=== PATIENT | female | born 2000 | race Caucasian/White ===

== ENCOUNTER 2022-12-12 19:45 | Emergency (ER) | payer OTHER ==
[2022-12-12] MEDS ORDERED: NA CHLORIDE 0.9% 1,000 ML ONE (20:36)
[2022-12-12] MEDS ORDERED: ONDANSETRON 4 MG/2 ML VIAL ONE (20:36)
[2022-12-12 20:43] LABS: Absolute Lymphocytes (CBC) 2.7 K/uL (0.7-4.9); Hematocrit 40.5 % (36.0-45.0); Lymphocytes % 33.2 % (15.3-44.8); MCV 88.4 fL (80-100); MPV 8.3 fL (7.6-11.3); RBC Red Blood Cell Count 4.58 M/uL (3.86-4.86)
[2022-12-12 20:45] LABS: Specific Gravity > 1.030 (1.005-1.030)
[2022-12-12 20:47] LABS: Specific Gravity > 1.030 (1.005-1.030); Urine Bacteria 20-50 /HPF (<20); Urine Bilirubin NEGATIVE (Negative); Urine Blood Trace (Negative); Urine Clarity Extremely Turbid (Clear); Urine Color Yellow (Yellow); Urine Crystals Unidentified Few /HPF (None Seen); Urine Glucose NEGATIVE (Negative); Urine Mucus Slight /HPF (None Seen); Urine Protein TRACE (Negative); Urine Urobilinogen Normal (Normal); Urine WBC Clump Occasional /HPF (None Seen); Urine pH 5.5 (5.0-7.0)
[2022-12-12 21:01] LABS: Albumin 3.7 g/dL (3.4-5.0); Bilirubin Total 0.5 mg/dL (0.2-1.0); Potassium 3.4 mEq/L (3.5-5.1); Protein, Total 7.8 g/dL (6.4-8.2)
--- NOTE | 2022-12-12 21:37 | ER ---
Nurse's Notes [facility] Name: Marizol Parra Age: 22 yrs Sex: Female : 2000 Arrival Date: 12/12/2022 Time: 19:45 Bed 18 Private MD: Diagnosis: Rash and other nonspecific skin eruption;Nausea;Hypokalemia;UTI/ Urinary tract infection, site not specified Presentation: 12/12 19:53 Chief complaint: Patient states: that she is feeling weak onset Sunday. Pt states that cm10 she has been vomiting and that her right eye is swollen, pt states that her vision is blurred in the right eye. Pt's mom states, "I think that she may have had a small stroke 2 days ago." Pt A\\T\\Ox4, respirations even and unlabored. Coronavirus screen: Vaccine status: Patient reports receiving the 2nd dose of the covid vaccine. Client denies travel out of the [place] in the last 14 days. At this time, the client does not indicate any symptoms associated with coronavirus-19. Ebola Screen: Patient denies travel to an Ebola-affected area in the 21 days before illness onset. No symptoms or risks identified at this time. Initial Sepsis Screen: Does the patient meet any 2 criteria? No. Patient's initial sepsis screen is negative. Does the patient have a suspected source of infection? No. Patient's initial sepsis screen is negative. Risk Assessment: Do you want to hurt yourself or someone else? Patient reports no desire to harm self or others. Onset of symptoms was December 10, 2022. 19:53 Method Of Arrival: Ambulatory cm10 19:53 Acuity: RAMON 3 cm10 Triage Assessment: 19:58 General: Appears in no apparent distress. uncomfortable, Behavior is calm, cooperative. cm10 Pain: Complains of pain in head. 19:59 EENT: Reports blurred vision in right eye. Neuro: No deficits noted. Level of cm10 Consciousness is awake, alert, Oriented to person, place, time, situation. Respiratory: No deficits noted. Airway is patent Respiratory effort is even, unlabored, Respiratory pattern is regular, symmetrical. Historical: - Allergies: 19:57 No Known Allergies; cm10 - Home Meds: 19:57 fluoxetine 20 mg Oral capsule [Active]; cm10 - PMHx: 19:57 Anemia; Depressive disorder; cm10 - PSHx: 19:57 None; cm10 - Immunization history:: Adult Immunizations unknown. - Social history:: Smoking status: Patient denies any tobacco usage or history of. Screenin:56 [facility] ED Fall Risk Assessment (Adult) History of falling in the last 3 months, vc1 including since admission No falls in past 3 months (0 pts) Confusion or Disorientation No (0 pts) Intoxicated or Sedated No (0 pts) Impaired Gait No (0 pts) Mobility Assist Device Used No (0 pt) Altered Elimination No (0 pt) Score/Fall Risk Level 0 - 2 = Low Risk Oriented to surroundings, Maintained a safe environment, Educated pt \\T\\ family on fall prevention, incl call for assistance when getting out of bed. Abuse screen: Denies threats or abuse. Nutritional screening: No deficits noted. Tuberculosis screening: No symptoms or risk factors identified. Assessment: 22:03 Reassessment: No changes from previously documented assessment. Patient and/or family vc1 updated on plan of care and expected duration. Pain level reassessed. Patient is alert, oriented x 3, equal unlabored respirations, skin warm/dry/pink. Vital Signs: 19:53 BP 138 / 80; Pulse 104; Resp 16; Temp 98.6; Pulse Ox 100% on R/A; Weight 71.67 kg; cm10 Height 5 ft. 5 in. ; Pain 6/10; 20:54 BP 124 / 66 Supine; Pulse 84; vc1 20:54 BP 125 / 99 Sitting; Pulse 99; vc1 20:55 BP 131 / 69; Pulse 84; vc1 22:03 BP 110 / 91; Pulse 81; Resp 16; Pulse Ox 100% ; vc1 19:53 Body Mass Index 26.29 (71.67 kg, 165.1 cm) cm10 19:53 Pain Scale: Adult cm10 20:55 Pt felt a little dizzy standing up vc1 ED Course: 19:50 Patient arrived in ED. ja2 19:57 Triage completed. cm10 19:59 Arm band placed on Patient placed in waiting room, on a stretcher. cm10 20:02 Gómez Hendricks MD is Attending Physician. [facility] 20:22 Inserted saline lock: 20 gauge in right antecubital area, using aseptic technique. vc1 Blood collected. 20:25 Calcote, Mile, MALATHI is Primary Nurse. vc1 21:36 Cj Coronado DO is Referral Physician. [facility] 22:29 Bed in low position. Call light in reach. Side rails up X 1. as6 22:29 No provider procedures requiring assistance completed. IV discontinued, intact, as6 bleeding controlled, No redness/swelling at site. Pressure dressing applied. 22:43 Primary Nurse role handed off by Mile Hammond RN as6 Administered Medications: 20:31 Drug: NS 0.9% IV 1000 ml Route: IV; Rate: 1 bolus; Site: right antecubital; vc1 22:29 Follow up: Response: No adverse reaction; IV Status: Completed infusion; IV Intake: as6 1000ml 20:31 Drug: Ondansetron IVP 4 mg Route: IVP; Site: right antecubital; vc1 22:29 Follow up: Response: No adverse reaction as6 21:55 Drug: Rocephin IV 1 grams Route: IV; Rate: per protocol; Site: right antecubital; vc1 22:29 Follow up: Response: No adverse reaction; IV Status: Completed infusion; IV Intake: [id number] 21:55 Drug: Potassium PO Effervescent Tablet 25 mEq Route: PO; vc1 22:29 Follow up: Response: No adverse reaction as6 Medication: 22:29 VIS not applicable for this client. as6 Intake: 22:29 IV: 50ml; Total: 50ml. as6 22:29 IV: 1000ml; Total: 1050ml. as6 Outcome: 21:36 Discharge ordered by . [facility] 22:29 Discharged to home ambulatory, with family. as6 22:29 Condition: stable 22:29 Discharge instructions given to patient, Instructed on discharge instructions, follow up and referral plans. medication usage, Demonstrated understanding of instructions, follow-up care, medications, Prescriptions given X 2. 22:30 Patient left the ED. as6 22:44 Patient left the ED. vc1 Signatures: Gómez Hendricks MD MD cha Alexander, Jessica ja2 Slawson, Ashby, RN RN as6 Mile Hammond RN RN vc1 Adrienne Jules RN RN cm10 Corrections: (The following items were deleted from the chart) 20:56 20:55 BP 131 / 69; Pulse 84bpm; vc1 vc1
--- NOTE | 2022-12-12 21:37 | EDPHYS ---
Physician Documentation [facility] Name: Marizol Parra Age: 22 yrs Sex: Female : 2000 Arrival Date: 12/12/2022 Time: 19:45 Bed 18 Private MD: ED Physician Gómez Hendricks HPI: 12/12 20:17 This 22 yrs old Female presents to ER via Ambulatory with complaints of Eye murphy Swelling, Weakness, Bumps on Hand. 20:17 The patient is experiencing right brow swelling. Onset: The symptoms/episode murphy began/occurred 1 day(s) ago. Duration: the symptoms are continuous. Aggravated by nothing. Alleviated by nothing. Associated signs and symptoms: Pertinent positives: None. Pertinent negatives: None. Patient does not utilize any form of vision correction. Severity of symptoms: At their worst the symptoms were mild in the emergency department the symptoms are unchanged. The patient has not experienced similar symptoms in the past. Historical: - Allergies: 19:57 No Known Allergies; cm10 - Home Meds: 19:57 fluoxetine 20 mg Oral capsule [Active]; cm10 - PMHx: 19:57 Anemia; Depressive disorder; cm10 - PSHx: 19:57 None; cm10 - Immunization history:: Adult Immunizations unknown. - Social history:: Smoking status: Patient denies any tobacco usage or history of. ROS: 20:18 Constitutional: Negative for fever, chills, and weight loss, Eyes: Negative for injury, murphy pain, redness, and discharge, ENT: Negative for injury, pain, and discharge, Neck: Negative for injury, pain, and swelling, Cardiovascular: Negative for chest pain, palpitations, and edema, Respiratory: Negative for shortness of breath, cough, wheezing, and pleuritic chest pain, Abdomen/GI: Negative for abdominal pain, nausea, vomiting, diarrhea, and constipation, Back: Negative for injury and pain, : Negative for injury, bleeding, discharge, and swelling, MS/Extremity: Negative for injury and deformity, Neuro: Negative for headache, weakness, numbness, tingling, and seizure, Psych: Negative for depression, anxiety, suicide ideation, homicidal ideation, and hallucinations, Allergy/Immunology: Negative for hives, rash, and allergies, Endocrine: Negative for neck swelling, polydipsia, polyuria, polyphagia, and marked weight changes. 20:18 Skin: Positive for rash. Exam: 20:18 Constitutional: This is a well developed, well nourished patient who is awake, alert, murphy and in no acute distress. Head/Face: Normocephalic, atraumatic. Eyes: Pupils equal round and reactive to light, extra-ocular motions intact. Lids and lashes normal. Conjunctiva and sclera are non-icteric and not injected. Cornea within normal limits. Periorbital areas with no swelling, redness, or edema. ENT: Nares patent. No nasal discharge, no septal abnormalities noted. Tympanic membranes are normal and external auditory canals are clear. Oropharynx with no redness, swelling, or masses, exudates, or evidence of obstruction, uvula midline. Mucous membranes moist. Neck: Trachea midline, no thyromegaly or masses palpated, and no cervical lymphadenopathy. Supple, full range of motion without nuchal rigidity, or vertebral point tenderness. No Meningismus. Chest/axilla: Normal chest wall appearance and motion. Nontender with no deformity. No lesions are appreciated. Cardiovascular: Regular rate and rhythm with a normal S1 and S2. No gallops, murmurs, or rubs. Normal PMI, no JVD. No pulse deficits. Respiratory: Lungs have equal breath sounds bilaterally, clear to auscultation and percussion. No rales, rhonchi or wheezes noted. No increased work of breathing, no retractions or nasal flaring. Abdomen/GI: Soft, non-tender, with normal bowel sounds. No distension or tympany. No guarding or rebound. No evidence of tenderness throughout. Back: No spinal tenderness. No costovertebral tenderness. Full range of motion. Skin: Warm, dry with normal turgor. Normal color with no rashes, no lesions, and no evidence of cellulitis. MS/ Extremity: Pulses equal, no cyanosis. Neurovascular intact. Full, normal range of motion. Neuro: Awake and alert, GCS 15, oriented to person, place, time, and situation. Cranial nerves II-XII grossly intact. Motor strength 5/5 in all extremities. Sensory grossly intact. Cerebellar exam normal. Normal gait. Psych: Awake, alert, with orientation to person, place and time. Behavior, mood, and affect are within normal limits. 22:44 ECG was reviewed by the Attending Physician. [facility] Vital Signs: 19:53 BP 138 / 80; Pulse 104; Resp 16; Temp 98.6; Pulse Ox 100% on R/A; Weight 71.67 kg; cm10 Height 5 ft. 5 in. ; Pain 6/10; 20:54 BP 124 / 66 Supine; Pulse 84; vc1 20:54 BP 125 / 99 Sitting; Pulse 99; vc1 20:55 BP 131 / 69; Pulse 84; vc1 22:03 BP 110 / 91; Pulse 81; Resp 16; Pulse Ox 100% ; vc1 19:53 Body Mass Index 26.29 (71.67 kg, 165.1 cm) cm10 19:53 Pain Scale: Adult cm10 20:55 Pt felt a little dizzy standing up vc1 MDM: 20:02 Patient medically screened. [facility] 20:19 Differential diagnosis: varicella, allergic reaction. Data reviewed: vital signs, [facility] nurses notes, lab test result(s). Consideration of Admission/Observation Escalation of care including admission/observation considered. I considered the following discharge prescriptions or medication management in the emergency department Medications were administered in the Emergency Department. See MAR. Test considered but Not performed: X-ray: no cxr, no ct. Care significantly affected by the following chronic conditions: depression, anemia. 12/12 20:16 Order name: CBC with Diff; Complete Time: 21:35 [facility] 12/12 20:16 Order name: Comprehensive Metabolic Panel; Complete Time: 21:35 [facility] 12/12 20:16 Order name: Urinalysis w/ reflexes; Complete Time: 21:35 [facility] 12/12 20:16 Order name: PREGU; Complete Time: 21:35 [facility] 12/12 20:50 Order name: Urine Culture EDMD 12/12 22:04 Order name: EKG; Complete Time: 22:04 [facility] 12/12 20:16 Order name: Orthostatic Blood Pressure; Complete Time: 20:58 [facility] 12/12 22:04 Order name: EKG - Nurse/Tech; Complete Time: 22:06 [facility] EC:44 Rate is 91 beats/min. Rhythm is regular. QRS Dexter is Normal. HI interval is normal. QRS murphy interval is normal. QT interval is normal. No Q waves. T waves are Normal. No ST changes noted. Clinical impression: NSR w/ Non-specific ST/T Changes and No evidence of ischemia. Interpreted by me. Reviewed by me. Administered Medications: 20:31 Drug: NS 0.9% IV 1000 ml Route: IV; Rate: 1 bolus; Site: right antecubital; vc1 22:29 Follow up: Response: No adverse reaction; IV Status: Completed infusion; IV Intake: as6 1000ml 20:31 Drug: Ondansetron IVP 4 mg Route: IVP; Site: right antecubital; vc1 22:29 Follow up: Response: No adverse reaction as6 21:55 Drug: Rocephin IV 1 grams Route: IV; Rate: per protocol; Site: right antecubital; vc1 22:29 Follow up: Response: No adverse reaction; IV Status: Completed infusion; IV Intake: [id number] 21:55 Drug: Potassium PO Effervescent Tablet 25 mEq Route: PO; vc1 22:29 Follow up: Response: No adverse reaction as6 Disposition Summary: 12/12/22 21:36 Discharge Ordered Location: Home [facility] Problem: new [facility] Symptoms: have improved murphy Condition: Stable [facility] Diagnosis - Rash and other nonspecific skin eruption murphy - Nausea murphy - Hypokalemia murphy - UTI/ Urinary tract infection, site not specified murphy Followup: murphy - With: Private Physician - When: 2 - 3 days - Reason: Recheck today's complaints, Continuance of care, Re-evaluation by your physician Followup: murphy - With: - When: 2 - 3 days - Reason: Recheck today's complaints, Re-evaluation by your physician Discharge Instructions: - Discharge Summary Sheet murphy - Nausea, Adult murphy - Rash, Adult murphy - Urinary Tract Infection, Adult [facility] Forms: - Medication Reconciliation Form [facility] - Thank You Letter [facility] - Antibiotic Education [facility] - Prescription Opioid Use [facility] - [email or web address] [facility] Prescriptions: - Zofran 4 mg Oral Tablet - take 1 tablet by ORAL route every 12 hours As needed; 20 tablet; Refills: 0, [facility] Product Selection Permitted - Bactrim DS 800-160 mg Oral Tablet - take 1 tablet by ORAL route every 12 hours for 7 days; 14 tablet; Refills: 0, [facility] Product Selection Permitted Signatures: Dis[facility] G[facility]mez Oliva MD MD cha Calcote, Vanessa RN RN vc1 Adrienne Jules RN RN cm10 Slawson, Mark RN as6
[2022-12-12] MEDS ORDERED: NA CHLORIDE 0.9% 50 ML ONE (22:03)
[2022-12-12] MEDS ORDERED: POTASSIUM 25 MEQ EFFERV TAB ONE (22:03)
[2022-12-12] MEDS ORDERED: CEFTRIAXONE 1000 MG/VIAL ONE (22:03)
[2022-12-12 22:53] VITALS: TEMP 98.6; O2SAT 100
[2022-12-12 22:57] VITALS: BP 110/91
--- NOTE | 2022-12-13 18:09 | EKG ---
Test Date: 2022-12-12 Test Time: 22:12:46 Jinrikisha Driver: RUFINO MEASUREMENT RESULTS: Intervals: Rate: 91 UT: 160 QRSD: 82 QT: 360 QTc: 442 [place]: P: 77 UT: 160 QRS: 71 T: 91 INTERPRETIVE STATEMENTS: Normal sinus rhythm Normal ECG No previous ECG available for comparison Electronically Signed On 12-13-22 18:07:21 CDT by Shilo Aguiar
== END 2022-12-12 22:44 | disposition home or self-care (01) ==
LOC: ER 19:45
DX: R21 Rash and other nonspecific skin eruption (principal); N39.0 Urinary tract infection, site not specified; E87.6 Hypokalemia; R11.0 Nausea; F32.A Depression, unspecified
CPT/HCPCS: 87088; 85025; 81001; 87086; 36415; 81025; 80053; J2405; J7030; J0696; 93005